=== PATIENT | female | born 2000 | race Caucasian/White ===

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

== ENCOUNTER 2022-03-11 12:29 | Day surgery (SDC) | payer BC ==
[2022-03-11 13:12] VITALS: BMI 32.5
[2022-03-11 13:40] LABS: Fetal Membranes Rupture No Membranes Rupture (No Rupture)
[2022-03-11] MEDS ORDERED: hydrALAZINE 20 MG/ML VIAL SLOW IVP PRN (15:01)
== END 2022-03-11 14:30 | disposition home or self-care (01) ==
LOC: CSHLD/OP 12:29
PROVIDERS: ATTEND Obstetrics & Gynecology
DX: O23.593 Infection of other part of genital tract in pregnancy, third trimester (principal); N89.8 Other specified noninflammatory disorders of vagina; Z3A.37 37 weeks gestation of pregnancy
CPT/HCPCS: 84112; 99284